=== PATIENT | male | born 1945 | race Caucasian/White ===

== ENCOUNTER 2023-08-28 08:45 | Outpatient (OUT) | payer OTHER, SELFPAY ==
--- NOTE | 2023-08-28 09:00 | RT_ITS ---
The [facility] Test Date: 2023-08-28 Pat Name: BETTY BOOKER Department: Room: - Gender: Male [place]: Kathrine Ochoa RRT : 1945 Requested By: Mac Saeed Order Number: [id number] Reading MD: Mac Saeed Interpretive Statements Pulmonary function testing was completed according to ATS criteria. Findings were considered accurate and reproducible. Both pre- and post-bronchodilator values utilized for spirometry. Spirometry (based on pre-bronchodilator values): -FEV1/FVC: Reduced @ 40% -FEV1: Severely reduced @ 35% -FVC: Reduced @ 65% -KBC33-78%: Reduced @ 13% -There is a positive bronchodilator response in FEV1 and FVC. Lung volumes by plethysmography (based on pre-bronchodilator values): -RV: Increased @ 229% -TLC: Increased @ 128% Diffusion capacity: -DLCO: Severe reduction @ 50% when corrected for Hb 12.4g/dL Flow-volume loop: -Severe obstructive pattern Impressions: -Spirometry suggests severe obstruction. There is a positive bronchodilator response. An elevated RV and TLC suggest air trapping and hyperinflation respectively.There is a severely reduced diffusion capacity. Overall study is compatible with COPD with a positive bronchodilator response, or asthm/COPD overlap. Clinical correlation required. Electronically Signed On 09-01-2023 13:29:37 EDT by Mac Saeed
[2023-08-28 09:16] LABS: Hemoglobin 12.4 g/dL (14.0-18.0)
[2023-08-28 09:27] LABS: ABG PCO2 40.5 mmHg (35.0-45.0); Base Excess ABG 2.6 mmol/L (-2.0-2.0); HCO3 ABG 26.9 mmol/L (22.0-26.0); Oxygen Saturation ABG 94.7 %; PO2 ABG 73.6 mmHg (80.0-100.0); pH ABG 7.431 (7.350-7.450)
[2023-08-28 09:28] LABS: Allen Test POS (POSITIVE); O2 Mode RA; Puncture Site L RADIAL
[2023-08-28] MEDS: ALBUTEROL SULFATE 2.5 MG/3 ML VIAL NEB IH (09:58)
--- NOTE | 2023-08-28 10:54 | RESP.RT ---
see chart for scanned document
--- NOTE | 2023-09-01 12:40 | W.PM.PROCNOT ---
Date of procedure: 09/01/23 Procedure: Procedure 6-minute walk Date 08/28/2023 Indication Emphysema, hypoxemia [facility] Not commented Procedure A 6-minute walk was initiated according to standard protocol. Resting BP: 152/63 HR: 96 SpO2: 94% FiO2: RA Richelle: 0 Patient ambulated for a total of 6 minutes. Maximum HR was 118. Lowest SpO2 was 91% on RA. Maximum Richelle was 3. Patient was recovered Recovery BP: 169/76 HR: 113 SpO2: 96% FiO2: RA Richelle: 1 Total number of stops: 0 Total Distance walked: 259m which is 82% of predicted walk distance Impressions: No ambulatory desaturations. Low normal walk distance. Recommendations: No supplemental O2 indicated for ambulation. Clinical correlation required.
== END 2023-08-28 08:46 | disposition home or self-care (01) ==
LOC: CARD 08:53
PROVIDERS: Visit Provider Internal Medicine
DX: J43.2 Centrilobular emphysema (principal); R09.02 Hypoxemia
CPT/HCPCS: 36415; 36600; 82805; 85018; 94060; 94618; 94726; 94729